=== PATIENT | female | born 1985 | race African-American/Black ===

== ENCOUNTER 2019-05-02 20:52 | Emergency (ER) | payer OTHER ==
[~2019-05-02] VITALS: Ht 162.6 cm; Wt 67.1 kg
--- NOTE | 2019-05-02 21:10 | NUR ---
Pt arrive at the ER with c/o generalized weakness, chestpain x 8 hours. Patient states hx of heart murmur, just came from [place] 2 weeks ago. Patient [id number]. No /GI concern.
--- NOTE | 2019-05-02 21:12 | NUR ---
Dr. Crocker on bedside for MSE.
[2019-05-02] MEDS ORDERED: IV NORMAL SALINE 1000 ML BAG IV ONE (21:15)
[2019-05-02] MEDS ORDERED: NITROGLYCERIN 0.4 MG/TAB BOTTLE SL ONE (21:15)
[2019-05-02] MEDS ORDERED: ASPIRIN 325 MG TABLET PO ONE (21:15)
--- NOTE | 2019-05-02 21:26 | NUR ---
Patient elope. [facility] to go to [facility] instead. Dr. Crocker made aware.
--- NOTE | 2019-05-02 21:26 | NUR ---
Meron mcclendon in ED - 05/02/19 at 2139 by MAGGIE Patient went AMA. Wanted to go to [facility] instead. Dr Obi mcgraw.
== END 2019-05-02 21:26 | disposition left against medical advice (07) ==
LOC: ER 20:55
DX: R07.89 Other chest pain (principal)
CPT/HCPCS: 93005; A4663